=== PATIENT | male | born 1990 | race Caucasian/White ===

== ENCOUNTER 2018-01-26 09:52 | Emergency (ER) | payer MEDICAID ==
[2018-01-26] MEDS ORDERED: IBUPROFEN 600 MG TAB PO ONE ×2 (10:02→10:03)
--- NOTE | 2018-01-26 10:06 | EDPHY ---
H & P Stated Complaint: Injury to right elbow - Time Seen by Provider: 01/26/18 10:02 HPI/ROS: HPI: This is a 27-year-old male who presents with Chief Complaint: Right elbow injury Location: Right elbow Quality: Injury Duration: Signs and Symptoms: No bleeding, no radiation, no numbness, no weakness, no tingling, no incontinence, no decreased range of motion, no swelling, no pain, no fever Timing: Severity: Context: Patient is right-hand dominant, presents with complaints of right elbow injury approximately 1 and 0.5 hr prior to arrival. Patient reports that an elderly man in his 70s was getting off the bus when he lost his balance. Patient grabbed the elderly man's arm and stabilized. Patient reports he then lost his balance, and fell backwards on the cement onto his right elbow. He reports that he has tingling in his 2nd and 3rd digits but denies any numbness. He does have decreased range of motion and constant pain over his olecranon. Denies LOC/head injury/neck pain/dizziness/nausea/vomiting/amnesia. Modifying Factors: None Comment: ROS: see HPI Constitutional: No fever, no chills, no weight loss Eyes: No blurred vision Respiratory: No shortness of breath, no cough Cardiovascular: No chest pain Gastrointestinal: No nausea, no vomiting no diarrhea Genitourinary: No dysuria Extremities: No myalgias Neurologic: No weakness, no numbness Skin: No rashes Hematologic: No bruising, no bleeding MEDICAL/SURGICAL/SOCIAL HISTORY: Medical history: Generally healthy. Does not take any regular medications. Surgical history: Right rib Social history: Employed. Family history noncontributory. CONSTITUTIONAL: Polite and cooperative, adult white male, awake and alert, no obvious distress HEENT: Atraumatic and normocephalic. NECK: supple, no midline tenderness, flexion 45 degrees, extension 45 degrees, right and left lateral flexion 45 degrees. No meningismus. Cardiovascular: Normal S1/S2, regular rate, regular rhythm, without murmur rub or gallop. PULMONARY/CHEST: Symmetrical and nontender. no crepitus. Clear to auscultation bilaterally. Good air movement. No accessory muscle usage. ABDOMEN: Soft, nondistended, nontender, no ecchymosis. PELVIC: no pain with rocking; bilateral hips flexion 125 degrees, extension 30 degrees, with no pain internal rotation and no pain external rotation. BACK: No midline tenderness, no paraspinous spasm, deep tendon reflexes 2/2, no pain with straight leg raise, No foot drop. Achilles reflexes are equal bilaterally. Able to walk on heels and toes without difficulty. EXTREMITIES: 2/2 pulses, strength 5/5, right SHOULDER: Arc test abduction to 180, abduction to 45, horizontal flexion 130, horizontal extension to 45, deltoid strength 5/5. No pain with Neer test/Bowman test (impingement). No Tenderness to palpation over AC joint. Right ELBOW: Full extension to 180, flexion to 150, no tenderness over medial epicondyle, moderate tenderness over lateral epicondyle, mild effusion. Right WRIST: Extension to 70, flexion to 80, radial deviation to 20 degree, ulnar deviation to 30, no scaphoid tenderness, no tenderness over ulnar styloid, no tenderness over radial styloid , no pain with Lia test, no pain with Phalen test, no pain with Tinel test. DIP/PIP/MCP flexion/extension intact with good light touch sensation. no deformities, no clubbing, no cyanosis or edema. NEUROLOGICAL: no focal neuro deficits. GCS 15. Light touch sensation intact. SKIN: Warm and dry, no erythema. no rash. Good capillary refill. Source: Patient Exam Limitations: No limitations - Medical/Surgical History Hx Asthma: No Hx Chronic Respiratory Disease: No Hx Diabetes: No Hx Cardiac Disease: No Hx Renal Disease: No Hx Cirrhosis: No Hx Alcoholism: No Hx HIV/AIDS: No Hx Splenectomy or Spleen Trauma: No Other PMH: Right rib surgery - Social History Smoking Status: Current every day smoker Constitutional: Initial Vital Signs Temperature (C) 36.4 C 01/26/18 09:52 Heart Rate 83 01/26/18 09:52 Respiratory Rate 18 01/26/18 09:52 Blood Pressure 141/104 H 01/26/18 09:52 O2 Sat (%) 99 01/26/18 09:52 O2 Delivery Mode Room Air Allergies/Adverse Reactions: Penicillins Allergy (Verified 01/26/18 09:57) Home Medications: Medication Instructions Recorded NK [No Known Home Meds] 01/26/18 Medical Decision Making - Diagnostics Imaging Results: Imaging Impressions Elbow X-Ray 01/26/18 09:57 Impression: There is no acute osseous abnormality. ED Course/Re-evaluation: Ibuprofen given an ice pack applied. Right elbow x-ray my read via bedside shows no fracture/dislocation No signs of neurovascular compromise/tenting of skin/compartment syndrome/ extremities and joints examined above and below area of concern and are neurovascularly intact. advised RICE This patient was seen under the supervision of my secondary supervising physician. I evaluated care for this patient independently. Differential Diagnosis: Differential diagnosis includes but is not limited to epicondylitis, sprain, olecranon fracture, distal humerus fracture, radial fracture, ulnar fracture, effusion. - Data Points Medications Given: Discontinued Medications Ibuprofen (Motrin) 600 mg PO EDNOW ONE Stop: 01/26/18 10:03 Last Admin: 01/26/18 10:05 Dose: 600 mg Departure - Departure Disposition: Home, Routine, Self-Care Clinical Impression: Contusion of right elbow, initial encounter, Injury of right elbow region Condition: Good Instructions: Elbow Sprain (ED) Additional Instructions: Take Tylenol 650 mg every 4 hours and/or Ibuprofen 600 mg every 8 hours with food as needed for pain. Apply ice for 30 minutes at a time; 2-3 times per day for the next 1-2 days. Follow up with Orthopedics in 1-2 weeks if symptoms persist or worsen at which time they will evaluate and recommend with you if conservative management versus surgery is indicated. The x-rays obtained in the emergency department today demonstrate no evidence of an obvious fracture. Sometimes fractures are not obvious on the initial set of x-rays performed in the ED. For this reason, you should have repeat x-rays performed in 7-10 days if you are having any pain exclude the possibility of an occult fracture. Return to the ER immediately if you experience new or worsening pain, discoloration, numbness, tingling, or any other symptoms that concern you. Referrals: Alonzo Weiner MD [Medical Doctor] - As per Instructions
[2018-01-26 10:28] VITALS: BP 145/99
== END 2018-01-26 10:28 | disposition home or self-care (01) ==
LOC: EDSEX
DX: S50.01XA Contusion of right elbow, initial encounter (principal); F17.200 Nicotine dependence, unspecified, uncomplicated; W01.0XXA Fall on same level from slipping, tripping and stumbling without subsequent striking against object, initial encounter; Y92.811 Bus as the place of occurrence of the external cause; Y99.8 Other external cause status; Y93.89 Activity, other specified

== ENCOUNTER 2018-01-27 10:29 | Emergency (ER) | payer MEDICAID ==
[2018-01-27] MEDS ORDERED: NS 1,000 ML IV ONE (10:39)
[2018-01-27] MEDS ORDERED: ONDANSETRON 4 MG/2 ML VIAL IVP ONE (10:39)
[2018-01-27] MEDS ORDERED: LORazepam 2 MG/ML INJ IVP ONE (10:49)
[2018-01-27] MEDS ORDERED: KETOROLAC 15 MG/1 ML SDV IVP ONE (10:49)
--- NOTE | 2018-01-27 10:52 | EDPHY ---
H & P Stated Complaint: N/V/D, abdominal pain - Personal History Current Tetanus/Diphtheria Vaccine: Yes Current Tetanus Diphtheria and Acellular Pertussis (TDAP): Yes - Medical/Surgical History Hx Asthma: No Hx Chronic Respiratory Disease: No Hx Diabetes: No Hx Cardiac Disease: No Hx Renal Disease: No Hx Cirrhosis: No Hx Alcoholism: No Hx HIV/AIDS: No Hx Splenectomy or Spleen Trauma: No Other PMH: Right rib surgery - Social History Smoking Status: Current every day smoker Time Seen by Provider: 01/27/18 10:32 HPI/ROS: CHIEF COMPLAINT: Abdominal cramping, vomiting, diarrhea HISTORY OF PRESENT ILLNESS: 27-year-old male no history of abdominal surgeries , homeless, states that he ate egg salad at the [facility] last night and 2 hr later started experiencing abdominal cramping, vomiting, diarrhea which continues. He is unable to tolerate oral intake currently. He is complaining of continued left upper quadrant cramping. No testicular or genitalia pain. No urinary abnormality. No melena or hematochezia. No untreated water sources. No recent antibiotic use. REVIEW OF SYSTEMS: A ten point review of systems was performed and is negative with the exception of the items mentioned in the HPI PAST MEDICAL & SURGICAL HISTORY: No history of abdominal surgeries. SOCIAL HISTORY: Homeless PHYSICAL EXAM (Prior to examination, patient consented to physical exam, hands were washed and my usual and customary physical exam procedures followed) 1) GENERAL: Well-developed, well-nourished, alert and oriented. Appears uncomfortable. 2) HEAD: Normocephalic, atraumatic 3) HEENT: Pupils equal, round, reactive to light bilaterally. Sclera anicteric. Nasopharynx, oropharynx, clear, no lesions. Dry mucous membranes 4) NECK: Full range of motion, no meningeal signs. 5) LUNGS: Clear auscultation bilaterally, no wheezes, no rhonchi, no retractions. 6) HEART: Regular rate and rhythm, no murmur, no heave, no gallop. 7) ABDOMEN: No guarding, tender to palpation left upper quadrant, negative McBurney's, negative Perrin's, negative Rovsing's, negative peritoneal sign, 8) MUSCULOSKELETAL: Moving all extremities, no focal areas of tenderness, no obvious trauma. No peripheral edema or discoloration. 9) BACK: No CVA tenderness, no midline vertebral tenderness, no fluctuance, no step-off, no obvious trauma, no visual or palpable abnormality. 10) SKIN: No rash, no petechiae. 11) Psychiatric: Patient is oriented X 3, there is no agitation. DIFFERENTIAL DIAGNOSIS: [My differential diagnosis includes, but is not limited to, acute appendicitis, acute cholecystitis, bowel obstruction, acute pancreatitis, testicular torsion, gastritis and urinary tract infection. The patient understands that this diagnosis is provisional and can never be 100% accurate. This is a partial list of diagnoses considered. These considerations are based on history, physical exam, past history and reassessment. ] (Earnestine Reyes) Constitutional: Initial Vital Signs Temperature (C) 37 C 01/27/18 10:29 Heart Rate 89 01/27/18 10:29 Respiratory Rate 15 01/27/18 10:29 Blood Pressure 141/101 H 01/27/18 10:29 O2 Sat (%) 96 01/27/18 10:29 O2 Delivery Mode Room Air Allergies/Adverse Reactions: Penicillins Allergy (Verified 01/26/18 09:57) Home Medications: Medication Instructions Recorded Ondansetron Odt [Zofran Odt] 4 mg PO Q4PRN PRN #10 tab 01/27/18 Medical Decision Making ED Course/Re-evaluation: 10:50 a.m.: Will administer IV hydration, antiemetic and re-evaluate. Care of patient under supervision of secondary supervising physician Dr David . 11:47 a.m.: Re-evaluation. Discussed his laboratory studies, re-examined the patient. Abdomen is soft no guarding no rebound no McBurney's point pain. Discussed laboratory results. Doubt acute surgical abdominal pathology, doubt acute appendicitis, doubt acute cholecystitis, doubt acute pancreatitis. I do not think that imaging studies are indicated at this time. Plan will be discharged with Zofran, usual and customary abdominal precautions and instructions. He feels comfortable being discharged. All questions and concerns addressed by myself. (Earnestine Reyes) I did not see this patient while he was in the emergency department. However his care was discussed with the PA while the patient was in the department. I agree with treatment plan and management (Andrae David) - Data Points Laboratory Results: Laboratory Results 01/27/18 10:50 01/27/18 10:50 Medications Given: Discontinued Medications Sodium Chloride (Ns) 1,000 mls @ 0 mls/hr IV ONCE ONE PRN Reason: Wide Open Stop: 01/27/18 10:40 Last Admin: 01/27/18 10:49 Dose: 1,000 mls Ketorolac Tromethamine (Toradol) 15 mg IVP EDNOW ONE Stop: 01/27/18 10:50 Last Admin: 01/27/18 10:53 Dose: 15 mg Lorazepam (Ativan Injection) 1 mg IVP EDNOW ONE Stop: 01/27/18 10:50 Last Admin: 01/27/18 10:53 Dose: 1 mg Ondansetron HCl (Zofran) 4 mg IVP EDNOW ONE Stop: 01/27/18 10:40 Last Admin: 01/27/18 10:49 Dose: 4 mg Departure - Departure Disposition: Home, Routine, Self-Care Clinical Impression: Nausea vomiting and diarrhea, Volume depletion Condition: Good Instructions: Acute Nausea and Vomiting (ED) Additional Instructions: Seek immediate medical attention if you develop new or worsening symptoms, if you develop fevers, chills, inability to tolerate oral intake or any other symptoms that concerns you. Referrals: [facility],. [Clinic] - 1 day without fail Prescriptions: Ondansetron Odt [Zofran Odt] 4 mg PO Q4PRN PRN #10 tab PRN Reason: Nausea
[2018-01-27 10:59] LABS: PLATELET COUNT 267 10^3/uL (150-400)
[2018-01-27 11:37] VITALS: BP 117/89
== END 2018-01-27 12:00 | disposition home or self-care (01) ==
LOC: EDBD → EDUNIT#
DX: R11.2 Nausea with vomiting, unspecified (principal); R19.7 Diarrhea, unspecified; E86.9 Volume depletion, unspecified; F17.200 Nicotine dependence, unspecified, uncomplicated
CPT/HCPCS: 96374; J1885; J2060; J2405

== ENCOUNTER 2019-01-11 05:17 | Emergency (ER) | payer MEDICAID ==
[2019-01-11] MEDS ORDERED: OLANZapine DISINTEGR 5 MG TAB PO ONE (05:23)
--- NOTE | 2019-01-11 05:27 | EDPHY ---
H & P - Medical/Surgical History Hx Asthma: No Hx Chronic Respiratory Disease: No Hx Diabetes: No Hx Cardiac Disease: No Hx Renal Disease: No Hx Cirrhosis: No Hx Alcoholism: No Hx HIV/AIDS: No Hx Splenectomy or Spleen Trauma: No Other PMH: Right rib surgery, knee surgery, wrist surgery - Social History Smoking Status: Current every day smoker Time Seen by Provider: 01/11/19 05:18 HPI/ROS: Chief Complaint: Hallucinating HPI: 28-year-old male being brought in by police on a mental health hold for bizarre behavior hallucinations. Please contacted the patient twice tonight once at the homeless residential and again outside the [facility]. The patient was complaining of hearing chain saws and seeing body parts in the streets. Patient admits to some alcohol but denies any other drug use recently. Last use of marijuana about 2-3 weeks ago. Denies prior psychiatric history. Denies any prescriptions for chronic medications. Denies any methamphetamine use. No recent illness. No fevers or chills. Patient was very agitated. He was brought to the crisis Center but they felt he was too unstable and had him sent here. He has been placed on M1 hold by the police. ROS: 10 systems were reviewed and were negative except those elements noted in the HPI. PMH: Denies Social History: No smoking, occasional alcohol, occasional marijuana Family History: non-contributory Physical Exam: Gen: Awake, Alert, pressured speech, mildly agitated, cooperative HEENT: Nose: no rhinorrhea Eyes: PERRLA, EOMI Mouth: Moist mucosa Neck: Supple, no JVD Chest: nontender, lungs clear to auscultation Heart: S1, S2 normal, no murmur Abd: Soft, non-tender, no guarding Back: no CVA tenderness, no midline tenderness Ext: no edema, non-tender Skin: no rash Neuro: CN II-XII intact, Sensation grossly intact, Strength 5/5 in bilateral upper and lower extremities (Aden Foreman) Constitutional: Initial Vital Signs Temperature (C) 36.8 C 01/11/19 05:22 Heart Rate 96 01/11/19 05:22 Respiratory Rate 18 01/11/19 05:22 Blood Pressure 168/105 H 01/11/19 05:22 O2 Sat (%) 95 01/11/19 05:22 O2 Delivery Mode Room Air Allergies/Adverse Reactions: Penicillins Allergy (Verified 01/11/19 05:22) Home Medications: Medication Instructions Recorded NK [No Known Home Meds] 05/19/18 Medical Decision Making ED Course/Re-evaluation: 07 patient signed out to Dr. Alberto pending mental health evaluation. (Aden Foreman) 7:00 a.m.-I assumed care of this patient at shift change. He presents with acute psychosis. He has received Zyprexa 10 mg orally and Versed 2 mg IV. Awaiting mental health evaluation. 0945-increased agitation. Zyprexa 10 mg orally given. 1500: Patient common cooperative, admits to methamphetamine use. Urine tox screen is negative, though patient is sure that he took meth. He is now, cooperative and is no longer psychotic. Clinical presentation consistent with acute psychosis secondary to methamphetamine use. I feel that he is safe and stable for discharge home. He was seen by mental health and there is no evidence of an acute mental health issue. He was strongly encouraged to follow up for polysubstance abuse. He denies suicidal or homicidal ideation. (Debbie Alberto) - Data Points Laboratory Results: Laboratory Results 01/11/19 05:50 01/11/19 05:50 01/11/19 01/11/19 01/11/19 14:10 05:50 05:50 WBC 13.57 10^3/uL H 10^3/uL (3.80-9.50) RBC 5.19 10^6/uL 10^6/uL (4.40-6.38) Hgb 15.9 g/dL g/dL (13.7-17.5) Hct 45.3 % % (40.0-51.0) MCV 87.3 fL fL (81.5-99.8) MCH 30.6 pg pg (27.9-34.1) MCHC 35.1 g/dL g/dL (32.4-36.7) RDW 12.2 % % (11.5-15.2) Plt Count 401 10^3/uL H 10^3/uL (150-400) MPV 9.2 fL fL (8.7-11.7) Neut % (Auto) 76.5 % H % (39.3-74.2) Lymph % (Auto) 16.0 % % (15.0-45.0) [place] % (Auto) 6.4 % % (4.5-13.0) Eos % (Auto) 0.0 % L % (0.6-7.6) Baso % (Auto) 0.8 % % (0.3-1.7) Nucleat RBC Rel Count 0.0 % % (0.0-0.2) Absolute Neuts (auto) 10.38 10^3/uL H 10^3/uL (1.70-6.50) Absolute Lymphs (auto) 2.17 10^3/uL 10^3/uL (1.00-3.00) Absolute Monos (auto) 0.87 10^3/uL H 10^3/uL (0.30-0.80) Absolute Eos (auto) 0.00 10^3/uL L 10^3/uL (0.03-0.40) Absolute Basos (auto) 0.11 10^3/uL H 10^3/uL (0.02-0.10) Absolute Nucleated RBC 0.00 10^3/uL 10^3/uL (0-0.01) Immature Gran % 0.3 % % (0.0-1.1) Immature Gran # 0.04 10^3/uL 10^3/uL (0.00-0.10) Sodium 143 mEq/L mEq/L (135-145) Potassium 4.2 mEq/L mEq/L (3.5-5.2) Chloride 103 mEq/L mEq/L (97-110) Carbon Dioxide 22 mEq/l mEq/l (22-31) Anion Gap 18 mEq/L H mEq/L (6-14) BUN 19 mg/dL mg/dL (7-23) Creatinine 1.2 mg/dL mg/dL (0.7-1.3) Estimated GFR > 60 Glucose 110 mg/dL H mg/dL (70-100) Calcium 10.6 mg/dL H mg/dL (8.5-10.4) Urine Opiates Screen NEGATIVE (NEGATIVE) Urine Barbiturates NEGATIVE (NEGATIVE) Ur Phencyclidine Scrn NEGATIVE (NEGATIVE) Ur Amphetamine Screen NEGATIVE (NEGATIVE) U Benzodiazepines Scrn NEGATIVE (NEGATIVE) Urine Cocaine Screen NEGATIVE (NEGATIVE) U Marijuana (THC) Screen NEGATIVE (NEGATIVE) Ethyl Alcohol < 10 mg/dL mg/dL (0-10) Medications Given: Discontinued Medications Midazolam HCl (Versed) 2 mg IVP EDNOW ONE Stop: 01/11/19 05:31 Last Admin: 01/11/19 05:30 Dose: 2 mg Nicotine (Nicoderm Cq) 21 mg TD EDNOW ONE Stop: 01/11/19 14:01 Last Admin: 01/11/19 14:25 Dose: 21 mg Olanzapine (Zyprexa Zydis) 10 mg PO EDNOW ONE Stop: 01/11/19 05:24 Last Admin: 01/11/19 05:30 Dose: 10 mg Olanzapine (Zyprexa Injection) 10 mg IM EDNOW ONE Stop: 01/11/19 10:07 Last Admin: 01/11/19 10:07 Dose: 10 mg Departure - Departure Disposition: Home, Routine, Self-Care Clinical Impression: Acute psychosis, Polysubstance abuse Condition: Good Instructions: Methamphetamine Abuse (ED) Referrals: [facility] [Outside] - As per Instructions Alis Wyatt MD [Medical Doctor] - As per Instructions
[2019-01-11] MEDS ORDERED: MIDAZOLAM 2 MG/2 ML VIAL IVP ONE (05:30)
[2019-01-11] MEDS ORDERED: MIDAZOLAM 2 MG/2 ML VIAL ONE (05:39)
[2019-01-11 05:59] LABS: PLATELET COUNT 401 10^3/uL (150-400)
[2019-01-11] MEDS ORDERED: OLANZapine 10 MG/2 ML VIAL ONE (09:41)
[2019-01-11] MEDS ORDERED: LORazepam 2 MG/ML INJ ONE (09:44)
[2019-01-11] MEDS ORDERED: OLANZapine 10 MG/2 ML VIAL IM ONE (10:06)
[2019-01-11] MEDS ORDERED: NICOTINE 21 MG/24 HR PATCH TD ONE (14:00)
[2019-01-11 15:49] VITALS: BP 127/80
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
--- NOTE | 2019-01-11 16:36 | ASMTTCLDSP ---
TLC Discharge Disposition Disposition: Answers: Discharge If Answers: Yes DISCHARGED: Patient/family given suicide hotline info & SAMH[employer] brochure? Disposition Notes: Notes: Pt was given resources for [facility] where he can seek both mental health and substance abuse treatment. Pt was given the phone number and address of [facility]. Pt was offered a reserved bed at the detention, but declined. Discharge Concerns/Recommendations: Notes: In consultation with [facility] ED physician,Dr Alberto it was concurred that Pt does not appear to meet 27-65 criteria requiring psychiatric hospitalization as Pt does not appear to be an imminent risk of harm to others or of himself due to grave disability due to a mental illness condition. Dr Alberto lifted the M1 hold 01/11/2019 at 15:12 Was patient given the Answers: Not applicable Inpatient Behavioral Health Prohibited Belongings List while in the ED? Date and time M1 hold 01/11/2019 03:12 PM vacated (time format is hh:mm): Type of Hold: Answers: M1/72-hour Hold Hold initiated by: Answers: Police Date Signed: 01/11/2019 04:35 PM Electronically Signed By:Betty Brewer
== END 2019-01-11 15:48 | disposition home or self-care (01) ==
DX: R44.1 Visual hallucinations (principal); F15.10 Other stimulant abuse, uncomplicated; Z59.0 Homelessness
CPT/HCPCS: 80305; 96374; G0480; J2060; J2250